=== PATIENT | male | born 1950 | race Caucasian/White ===

== ENCOUNTER 2020-11-26 19:46 | Emergency (ER) | payer MEDICARE, SELFPAY ==
[2020-11-26] VITALS (7 sets, daily range): BP systolic 107–130; BP diastolic 74–84; PULSE 84–95; RESP 17–29; TEMP 36.1–37.2; O2SAT 93–100
--- NOTE | ~2020-11-26 | XR_ITS ---
XR chest 1V DATE: 11/26/2020 20:49 INDICATION: Cough, shortness of breath. Covid exposure. TECHNIQUE: PA chest COMPARISON: None FINDINGS: There is patchy right mid and more prominent bilateral lower lung infiltrate. Normal heart size. Aortic calcification and mild tortuosity. No hilar or mediastinal enlargement. No pleural effusion or pulmonary vascular congestion or pneumothorax. Old healed right rib fracture deformities. Osteopenia. Degenerative spurring of the thoracic spine. IMPRESSION: Patchy right mid and bilateral lower lung field infiltrates suggesting bilateral pneumoni a. Differential diagnosis includes aspiration pneumonitis. Reviewed, dictated and finalized at location [facility]. IMPRESSION: Patchy right mid and bilateral lower lung field infiltrates suggest ing bilateral pneumonia. Differential diagnosis includes aspiration pneumonitis .
--- NOTE | ~2020-11-26 | CT_ITS ---
EXAMINATION: CTA chest PE protocol DATE: 11/26/2020 22:29 INDICATION: Dyspnea. Possible Covid infection. TECHNIQUE: Computed tomography angiography (CTA) of the chest was performed with 100 mL Omnipaque-350 intravenous contrast timed to evaluate the pulmonary arteries. Coronal maximum intensity projection 3D-reconstructions were created by the technologist. Automated exposure control and iterative reconst ruction technique were employed. Exam dose: 427.78 mGy-cm total exam DLP. COMPARISON: 11/26/2020 portable AP chest FINDINGS: There is diagnostic contrast enhancement of the pulmonary arteries and no evidence of pulmo nary embolism. There are patchy predominantly peripheral pulmonary infiltrates scattered throughout all lobes, likel y secondary to bilateral pneumonia. There is mild mediastinal and bilateral hilar lymph node prominence, likely reactive. No thoracic aortic aneurysm or dissection. Heart size is within normal range. No pericardial or pleural effusion. Normal morphology of the adrenal glands. Diffuse idiopathic skeletal hyperostosis of the thoracic spine. IMPRESSION: Patchy predominantly peripheral infiltrates scattered throughout both lungs, likely due to pneumonia No evidence of pulmonary embolism Reviewed, dictated and finalized at Location [facility]. Reviewed, dictated and finalized at location A. IMPRESSION: Patchy predominantly peripheral infiltrates scattered throughout b oth lungs, likely due to pneumonia No evidence of pulmonary embolism
--- NOTE | 2020-11-26 19:52 | ECG_ITS ---
Measurements Intervals [place] Rate: 83 P: 33 W[place]: 142 QRS: 24 QRSD: 94 T: 31 QT: 345 QTc: 406 Interpretive Statements SINUS RHYTHM MINIMAL Q WAVES- HIGH LATERAL LEADS BASELINE ARTIFACT- I, II, AVR BORDERLINE ECG Electronically Signed On 11-27-2020 7:32:19 CDT by Moe Brooks D.O.
[2020-11-26 20:02] LABS: Basophils Percent Auto 0.2 % (0.2-1.2); Hematocrit 43.5 % (42.0-52.0); Hemoglobin 14.8 g/dL (14.0-18.0); Immature Granulocyte Absolute 0.01 K/mm3 (0.00-0.031); Immature Granulocyte Percent A 0.2 % (0-0.5); Lymphocytes Absolute Auto 1.47 K/mm3 (0.9-3.2); Lymphocytes Percent Auto 28.3 % (18.3-44.2); Mean Corpuscular Hemoglobin 29.7 pg (26-34); Mean Corpuscular Volume 87.3 fl (80-100); Mean Platelet Volume 11.4 fl (7.4-10.4); Monocytes Absolute Auto 0.3 K/mm3 (0.1-0.6); Monocytes Percent Auto 6.5 % (2.6-8.5); Neutrophils Absolute Auto 3.4 K/mm3 (1.3-6.7); Neutrophils Percent Auto 64.8 % (45.5-73.1); Platelet Count Result 156 k/mm3 (150-375); Red Blood Count 4.98 M/mm3 (4.6-6.20); Red Cell Distribution Width 12.2 % (11.5-14.5); White Blood Count 5.2 K/mm3 (4.5-10.0)
[2020-11-26 20:13] LABS: Anion Gap 8 mmol/L (8-16); Blood Urea Nitrogen 20 mg/dL (9-20); Calcium 8.2 mg/dL (8.4-10.2); Carbon Dioxide 27 mmol/L (22-30); Chloride 103 mmol/L (98-107); Estimated CRCL calculation 58 ml/min; Estimated Glomerular Filt Rate > 60; Glucose 128 mg/dL (75-110); Potassium 3.7 mmol/L (3.4-5.0); Sodium 138 mmol/L (137-145)
--- NOTE | 2020-11-26 20:50 | PC.NURSE ---
Pt from [facility] and is now in room resting on cart in its lowest position with call button and personal items within reach.
--- NOTE | 2020-11-26 20:53 | PC.NURSE ---
EDMD presented to bedside. Pt presents to ED with complaints of sob and frequent fevers. is a sick contact and positive for covid. Pt sob with ambulating environment. Pt complains of chest pain that is due to frequent coughing. Pt states he was seen at a few days ago and was prescribed abts and neb tx that he has been using at home with relief. Pt breathing even and unlabored; able to speak in full sentences without difficulty. Pt alert and oriented x4 and is in no obvious distress at this time. Call button and personal items within reach. Advised to press call button for assistance.
--- NOTE | 2020-11-26 21:03 | ED.SOB ---
HPI - SOB/Dyspnea General Chief Complaint: Shortness of Breath/Dyspnea Stated Complaint: Covid exposure, chills, sob, cough Time Seen by Provider: 11/26/20 20:45 Source: RN notes reviewed History of Present Illness HPI Narrative: Patient presents to emergency room from home for shortness of breath. Patient states that he has been sick for approximately 1 week states he has had a cough this been for active clear sputum as well as low-grade temperatures. Patient states his tested positive for Covid approximately 10 days ago patient states he has been feeling more short of breath over the past several days has a home pulse ox machine that has gone down to 88% when he walks per the patient he denies any chest pain abdominal pain nausea or vomiting or any other symptoms patient was seen at the urgent care yesterday and was tested for Covid does not have the results back he was started on doxycycline yesterday which she has been taking Related Data Allergies Allergy/AdvReac Type Severity Reaction Status Date / Time No Known Allergies Allergy Verified 11/26/20 19:53 Review of Systems Review of Systems: Narrative: Gen.: See HPI Eyes: Denies eye pain or visual change ENT: Denies congestion Respiratory: See HPI CV: Denies chest pain or palpitations GI: Denies abdominal pain nausea, emesis or diarrhea Musculoskeletal: Denies back pain or muscle pain Neuro: Denies numbness, tingling, weakness or focal weakness Skin: Denies rash Except as documented, all other systems reviewed and negative FORMERLY [facility] Past Medical History Medical History (Updated 11/27/20 @ 00:05 by Alexei Marie DO) Hypertension Family History Family History (Updated 05/07/14 @ 07:13 by DOCTOR UNKNOWN) Mother Hypertension Sibling Family history of coronary artery disease Social History Social History Smoking status: Never smoker Alcohol intake: never Gender identity (if verbalized by the patient): Male Exam Narrative: Exam Narrative: APPEARANCE: No acute distress, nontoxic, resting in bed EYES: EOMI HEENT: Normocephalic, atraumatic, OMM RESPIRATORY: No respiratory distress Clear to auscultation bilaterally with no rhonchi wheezing or rales. CARDIOVASCULAR: Regular rate and rhythm without murmurs rubs or gallops. ABDOMINAL: Soft, nontender, nondistended, no rebound or guarding MUSCULOSKELETAl: Moves all extremities. No clubbing, cyanosis or edema. NEURO: Awake and alert. Following commands, speech normal, no focal deficits SKIN:: Warm, dry. No rashes lesions or abrasions PSYCHIATRIC: Normal affect/mood, Course Course Emergency Course: Patient with a walking pulse ox emergency department with oxygen saturations ranging from 96 to the lowest of 90% on room air is able to make a full walk around the entire nurses station with no difficulty Discussed with patient results of workup and diagnosis. Discussed need for follow-up with primary care, proper use of medication, and reasons to return to the emergency department. Patient understands and agrees to current treatment plan Vital Signs Vital signs: Vital Signs Temperature 97.0 F L 11/26/20 19:47 Pulse Rate 95 11/26/20 19:47 Respiratory Rate 17 11/26/20 19:47 Blood Pressure 115/74 11/26/20 19:47 Pulse Oximetry 93 11/26/20 19:47 Temperature 98.9 F 11/26/20 21:03 Pulse Rate 88 11/26/20 23:37 Respiratory Rate 27 H 11/26/20 23:37 Blood Pressure 130/84 11/26/20 23:37 Pulse Oximetry 97 11/26/20 23:37 MDM - SOB/Dyspnea Lab Data Result diagrams: 11/26/20 19:54 11/26/20 19:54 Labs: Lab Results 11/26/20 11/26/20 11/26/20 Range/Units 19:54 19:54 19:54 WBC 5.2 (4.5-10.0) K/mm3 RBC 4.98 (4.6-6.20) M/mm3 Hgb 14.8 (14.0-18.0) g/dL Hct 43.5 (42.0-52.0) % MCV 87.3 (80-100) fl MCH 29.7 (26-34) pg MCHC 34.0 (32-36) g/dl RDW 12.2 (11.5-14.5)
[2020-11-26] MEDS: ALBUTEROL SULFATE (*SP) INHALER 2 PUFF INHALATION (21:11)
[2020-11-26 21:13] LABS: INR 0.9; Prothrombin Time 12.3 Seconds (11.1-14.7)
[2020-11-26 21:14] LABS: Partial Thromboplastin Time 31.8 SECONDS (22.3-36.8)
[2020-11-26 21:17] LABS: D Dimer 0.82 ug/mL (<0.48)
--- NOTE | 2020-11-26 23:36 | PC.NURSE ---
Called Gabi from [facility] back with no answer.
--- NOTE | 2020-11-26 23:37 | PC.NURSE ---
Pt resting on cart with call button and personal items within reach. No complaints or concerns voiced at this time. Pt remains alert and oriented x4 and is in no obvious distress. Pt advised to press call button for assistance.
[2020-11-27 00:09] VITALS: O2SAT 97
[2020-11-27] MEDS: methylPREDNISolone SOD SUCC 125 MG VIAL IV PUSH (00:11)
[2020-11-27 00:22] VITALS: BP 136/84; PULSE 89; RESP 20; TEMP 37.5; O2SAT 97
[2020-11-27 19:13] LABS: SARS-CoV-2 RNA PCR Positive
== END 2020-11-27 00:22 | disposition home or self-care (01) ==
PROVIDERS: Emergency Provider Emergency Medicine; PCP Family Medicine
DX: U07.1 COVID-19 (principal); I10 Essential (primary) hypertension; R94.31 Abnormal electrocardiogram [ECG] [EKG]; R91.8 Other nonspecific abnormal finding of lung field
CPT/HCPCS: 36415; 71045; 71275; 80048; 85025; 85380; 85610; 85730; 93005; 94640; 96374; 99284; A9270; C9803; J2930; Q9967; U0003; U0005